=== PATIENT | male | born 1960 | race Caucasian/White ===

== ENCOUNTER → 2020-03-25 09:00 | Outpatient (BNVA) | payer OTHER, SELFPAY | PROVIDERS: Family Provider Nurse Practitioner Family; PCP Nurse Practitioner Family; Visit Provider Family Medicine | DX: N40.0 Benign prostatic hyperplasia without lower urinary tract symptoms (principal); R97.20 Elevated prostate specific antigen [PSA] | CPT/HCPCS: 84153 ==

== ENCOUNTER → 2020-09-11 09:00 | Outpatient (BNVA) | payer OTHER, SELFPAY | PROVIDERS: Family Provider Nurse Practitioner Family; PCP Nurse Practitioner Family; Visit Provider Nurse Practitioner Family | DX: R97.20 Elevated prostate specific antigen [PSA] (principal) | CPT/HCPCS: 84153 ==

== ENCOUNTER → 2021-03-29 09:16 | Outpatient (BNVA) | payer OTHER, SELFPAY | PROVIDERS: Family Provider Nurse Practitioner Family; PCP Nurse Practitioner Family; Visit Provider Urology | DX: R97.20 Elevated prostate specific antigen [PSA] (principal) | CPT/HCPCS: 84153 ==

== ENCOUNTER → 2021-11-09 08:58 | Outpatient (BNVA) | payer OTHER, SELFPAY | PROVIDERS: Family Provider Nurse Practitioner Family; PCP Nurse Practitioner Family; Visit Provider Urology | DX: R97.20 Elevated prostate specific antigen [PSA] (principal) | CPT/HCPCS: 84153 ==

== ENCOUNTER → 2022-11-28 09:37 | Outpatient (BNVA) | payer OTHER, SELFPAY | PROVIDERS: Family Provider Nurse Practitioner Family; PCP Nurse Practitioner Family; Visit Provider Urology | DX: N40.0 Benign prostatic hyperplasia without lower urinary tract symptoms (principal) | CPT/HCPCS: 84153 ==

== ENCOUNTER → 2023-10-09 10:54 | Outpatient (BNVA) | payer OTHER, SELFPAY | PROVIDERS: Family Provider Nurse Practitioner Family; PCP Nurse Practitioner Family; Visit Provider Family Medicine | DX: M25.511 Pain in right shoulder (principal) | CPT/HCPCS: 73030 ==

== ENCOUNTER → 2023-11-29 13:13 | Outpatient (BNVA) | payer OTHER, SELFPAY | PROVIDERS: Family Provider Nurse Practitioner Family; PCP Nurse Practitioner Family; Referring Provider Family Medicine; Visit Provider Specialist | DX: M12.811 Other specific arthropathies, not elsewhere classified, right shoulder | CPT/HCPCS: 73030 ==

== ENCOUNTER 2023-12-26 10:41 | Outpatient (CLI) | payer OTHER, SELFPAY ==
--- NOTE | 2023-12-26 11:00 | MR_ITS ---
WS: [id number] MRI RIGHT SHOULDER HISTORY: right shoulder pain COMPARISON: Radiograph 11/29/2023 TECHNIQUE: Multiplanar sequences of the shoulder joint are submitted. Moderate to severe AC joint arthritis. Thickening of the capsule surrounding the AC joint. Small cyst s in the distal clavicle measure up to 4.5 mm. There is a small amount of fluid in the subacromial an d subdeltoid bursa. No significant subacromial impingement. Normal position of the biceps tendon. No os acromion. There is increased T2 signal involving the very anterior most aspect of the supraspinatus muscle and increased T2 signal within the coracohumeral ligament with displacement. Findings are related to impi ngement upon the supraspinatus muscle and tendon with adjacent acute reactive inflammatory response. There are a few small cystic lesions near the coracohumeral ligament. These may be within the anterio rmost supraspinatus tendon. There does not appear to be a tendon tear. The remaining rotator cuff is negative. Small subchondral cysts in the superior humeral head. Normal glenoid. IMPRESSION: 1. Moderate to severe AC joint arthritis with distal clavicular osteophytes encroaching upon the ant erior most supraspinatus myotendinous insertion and the rotator cuff interval. There is increased T2 signal consistent with inflammatory response to the rotator cuff interval and possible small cystic c hanges within the supraspinatus muscle at this level. 2. Increased T2 signal in the coracohumeral ligament through the rotator cuff interval. 3. No full-thickness tear of the rotator cuff or retraction. 4.
== END 2023-12-26 10:42 | disposition home or self-care (01) ==
LOC: RAD 10:42
PROVIDERS: Family Provider Nurse Practitioner Family; PCP Family Medicine; Visit Provider Specialist
DX: M25.511 Pain in right shoulder (principal); M25.711 Osteophyte, right shoulder; M13.811 Other specified arthritis, right shoulder
CPT/HCPCS: 73221

== ENCOUNTER → 2024-01-10 08:53 | Outpatient (BNVA) | payer OTHER, SELFPAY | PROVIDERS: Family Provider Nurse Practitioner Family; PCP Family Medicine; Visit Provider Family Medicine | DX: N40.1 Benign prostatic hyperplasia with lower urinary tract symptoms (principal) | CPT/HCPCS: 84153 ==

== ENCOUNTER 2024-06-17 13:20 | Outpatient (CLI) | payer OTHER, SELFPAY ==
[2024-06-17] MEDS: iohexol 350 mg/mL 500 mL Btl (per mL) PO (13:39)
[2024-06-17 14:07] LABS: Blood Urea Nitrogen 25 mg/dL (8-23); Glomerular Filtration Rate 61.1 mL/min (90-130)
[2024-06-17] MEDS: iohexol 350 mg/mL 500 mL Btl (per mL) IV (14:23)
--- NOTE | 2024-06-17 14:30 | CT_ITS ---
WS: [id number] CT ABDOMEN AND PELVIS WITH CONTRAST HISTORY: recurrent bilateral hernias TECHNIQUE: Imaging performed of the abdomen and pelvis with IV contrast. Single phase imaging of the abdomen. Coronal and sagittal reformats are submitted. All CT scans at [facility] use at [address] one of these dose optimization techniques: automated exposure control; mA and/or kV adjustment per patient size (includes targeted exams where dose is matched to clinical indication); or iterative re construction. IV CONTRAST: Omnipaque 350; 100 mL IV. Oral contrast: Yes DLP: 732.98 mGy.cm COMPARISON: None available. Lower thorax: Mild dependent changes at the lung bases. Heart is normal size. Small hiatal hernia. Liver/biliary system: Normal size with no intrahepatic dilatation. Gallbladder: Probable cholelithiasis. Pancreas: Normal size pancreas and pancreatic duct. No adjacent inflammation. Spleen: Normal size spleen. No mass or infarct. Adrenal glands: RIGHT adrenal gland is not definitely identified. Normal LEFT adrenal gland. Right kidney: Abnormal appearance of the RIGHT kidney. Very large heterogeneous mass centered in the RIGHT retroperitoneum inseparable from the RIGHT kidney and renal pelvis. This mass extends over a le ngth of 16.9 cm x 14.8 x 12.0 cm. The RIGHT kidney is being displaced anteriorly but this mass is als o invading portion of the kidney. Mass extends into the gallbladder fossa and displacing the gallblad nelda anteriorly. Pancreatic head is being displaced medially. IVC is being displaced centrally . Adren al gland not identified as a separate structure. There is increased vascularity. The central portion of this mass is of mixed attenuation. IVC is being displaced anteriorly and enters along the anterior portion of the mass. Left kidney: Normal. Aorta: Normal. Lymphadenopathy: There are few tiny smooth mesenteric and retroperitoneal lymph nodes. Mild stranding around the mass centered in the RIGHT retroperitoneum associated with the kidney. Free fluid: Small amount of fluid along the mass in the RIGHT abdomen. GI tract: No obstruction. Abdominal wall: Unremarkable abdominal wall. No hernia. Pelvis: No free fluid or adenopathy within the pelvis. RIGHT inguinal canal is patent containing fat. Normal LEFT inguinal canal. Bladder is well distended. No filling defects. Prostate is enlarged encr oaching into the bladder. Bones: Scattered foci of increased density within the bones most consistent with small bone islands. CT/CT abdomen pelvis w con* [id number] IMPRESSION: 1. Very large RIGHT retroperitoneal mass is inseparable and invading the RIGHT kidney. Mass measures 16.9 x 14.8 x 12.0 cm. This is probably associated with the RIGHT kidney but there is also distortion of several adjacent soft tissue s tructures. The RIGHT kidney is being displaced anteriorly with adjacent perinep hric stranding. Small amount of adjacent fluid. 2. Retroperitoneal mass is distorting and displacing adjacent soft tissue stru ctures. The RIGHT adrenal gland is not definitely visualized as a separate stru cture. The RIGHT renal vein is being displaced anteriorly and enters the anteri or RIGHT renal mass and kidney. Renal cell neoplasm versus uroepithelial lesion . Due to the large size differential includes lymphoma and sarcoma. Recommend f ollow-up with urology. 3. Patent fat-containing RIGHT inguinal hernia. 4. Prostate enlargement. 5. Probable cholelithiasis.
== END 2024-06-17 13:21 | disposition home or self-care (01) ==
LOC: RAD 13:22
PROVIDERS: Family Provider Nurse Practitioner Family; PCP Family Medicine; Visit Provider Surgery
DX: K40.91 Unilateral inguinal hernia, without obstruction or gangrene, recurrent (principal); K44.9 Diaphragmatic hernia without obstruction or gangrene; D30.01 Benign neoplasm of right kidney; N15.1 Renal and perinephric abscess; N40.0 Benign prostatic hyperplasia without lower urinary tract symptoms
CPT/HCPCS: 74177; 82565; 84520; Q9967

== ENCOUNTER → 2024-06-28 09:05 | Outpatient (BNVA) | payer OTHER, SELFPAY | PROVIDERS: Family Provider Nurse Practitioner Family; PCP Family Medicine; Visit Provider Surgery | DX: N28.89 Other specified disorders of kidney and ureter (principal) | CPT/HCPCS: 36415; 80048; 80076; 81003; 81015; 85025 ==

== ENCOUNTER 2024-07-17 14:58 | Outpatient (CLI) | payer OTHER, SELFPAY ==
--- NOTE | 2024-07-17 15:10 | CTR_ITS ---
PROCEDURE INFORMATION: Exam: CT Chest Without and With Contrast; Diagnostic Exam date and time: 07/17/2024 3:35 PM Age: 63 years old Clinical indication: Condition or disease; Patient HX: Right renal mass PT is scheduled for 08/02/24 to have right renal mass removed. TECHNIQUE: Imaging protocol: Diagnostic computed tomography of the chest without and with contrast. Radiation optimization: All CT scans at this facility use at least one of these dose optimization techniques: automated exposure control; mA and/or kV adjustment per patient size (includes targeted exams where dose is matched to clinical indication); or iterative reconstruction. Contrast material: OMNI 350; Contrast volume: 100 ml; Contrast route: INTRAVENOUS (IV); COMPARISON: CT abdomen pelvis w con* [id number] 06/17/2024 2:15 PM RADIATION DOSE METRICS: Total DLP (mGy-cm): 1039.5 FINDINGS: Lungs: There are scattered calcified granulomas. Two adjacent noncalcified nodules involving the right middle lobe (image 40 of series 5) both measure 3 mm in size. Noncalcified nodule involving the right lower lobe measures 4-5 mm in size (series 5, image 40). 2-3 mm noncalcified pulmonary nodule right lung base (series 5 image 64). 2 mm noncalcified pulmonary nodule left upper lobe (series 5, image 18). There is linear scarring or atelectasis involving the lower lobes bilaterally. No consolidated infiltrates are appreciated. Pleural spaces: Unremarkable. No pneumothorax. No pleural effusion. Heart: Unremarkable. No cardiomegaly. No pericardial effusion. Mediastinal space: There is a triangular lesion within the anterior superior mediastinum which measures 1.7 x 2.2 cm in size. The lesion measures 6.6 Hounsfield units on the precontrast images and 12 Hounsfield units on the postcontrast images. No appreciable internal enhancement is identified. The lesion measures fluid density. Potentially this may represent a benign mediastinal cyst. Lymph nodes: Unremarkable. No enlarged lymph nodes. Vasculature: The aorta is normal in caliber without aneurysm or dissection. There is minimal calcified plaque involving the aorta. No calcified plaque is noted involving the coronary vessels. Gallbladder and biliary ducts: There are gallstones within the gallbladder. Kidneys: There is a partially imaged mass within the right upper quadrant which has been previously shown to arise from the right kidney. Bones/joints: Unremarkable. No acute fracture. Soft tissues: Unremarkable. CT/CT chest wo/w con [id number] IMPRESSION: 1. Small bilateral pulmonary nodules which may or may not be metastatic in origin. 2. Linear atelectasis or scarring at the lung bases. 3. Fluid density lesion within the anterior superior mediastinum possibly representing a mediastinal cyst. Follow-up may be of benefit to document stability over time. 4. Cholelithiasis. 5. Partially imaged mass within the right upper quadrant presumably arising from the right kidney.
[2024-07-17] MEDS: iohexol 350 mg/mL 500 mL Btl (per mL) IV (15:45)
== END 2024-07-17 14:59 | disposition home or self-care (01) ==
LOC: RAD 14:59
PROVIDERS: Family Provider Nurse Practitioner Family; PCP Family Medicine; Visit Provider Surgery Trauma Surgery
DX: N28.89 Other specified disorders of kidney and ureter (principal); R91.8 Other nonspecific abnormal finding of lung field; J98.11 Atelectasis; D15.2 Benign neoplasm of mediastinum; K80.20 Calculus of gallbladder without cholecystitis without obstruction; D30.01 Benign neoplasm of right kidney
CPT/HCPCS: 71270; Q9967

== ENCOUNTER → 2024-09-03 09:06 | Outpatient (BNVA) | payer OTHER, SELFPAY | PROVIDERS: Family Provider Nurse Practitioner Family; PCP Family Medicine; Visit Provider Family Medicine | DX: R91.1 Solitary pulmonary nodule (principal) | CPT/HCPCS: 80053 ==

== ENCOUNTER 2024-09-09 05:35 | Day surgery (SDC) | payer OTHER, SELFPAY ==
--- OUTSIDE RECORDS SUMMARY | 2024-08-28 15:55 | XMS_ITS ---
Author Name Unknown Organization [facility] Address [address] [place] [address] Care Team Providers Care [place] Erector Helper Name Role Phone Darius Sánchez DO Primary Care Provider Fabian Page [phone] REASON FOR VISIT 1 yr w/ psa/ua/pvr Encounters Encounter Location Date Provider Diagnosis [facility] [address] [place] [id number] 01/18/2024 Fabian Floyd Plan Of Treatment No Information Progress Notes * Lon JAMESinDOB: (63 yo M)Acc No.[id number]:01/18/2024 Progress Notes Patient:?Jean JAMES Provider:?Fabian Floyd MD :1960???Age:63 Y???Sex:Male Duane e:01/18/2024 Address:[address] [place], [place] [id number] Pcp:Darius Sánchez DO Subjective: * Chief Complaints: * ???1. 1 yr w/ psa/ua/pvr. * Medical History:? Objective: * Vitals:? Assessment: Plan: * Treatment: * Billing Information: * Visit Code:? * Procedure Codes:? * Electronic signature of Williams Floyd MD on 08/28/2024 at 03:55 PM CDT Sign off status: Pending * Provider:?Fabian Floyd MD Date:?2023 Generated for Printi ng/Faxing/eTransmitting on:?08/28/2024 03:55 PM CDT
--- OUTSIDE RECORDS SUMMARY | 2024-08-28 15:55 | XMS_ITS | Patient Health Record ---
Author Name Unknown Organization [facility] Address [address] [place] [address] Care Team Providers Care Tumbler Machine Operator Helper Name Role Phone Darius Sánchez DO Primary Care Provider Unavail jon FloydFabian [phone] Allergies Allergen (clinical drug ingredient) Drug/Non Drug Allergy documented on EMR Reaction Allergy Type Onset Date Status No Known Drug Allergy Unknown Drug Allergy Active Reason For Referral No Information Medications Medication SIG (Take, Route, Fr equency, Duration) Notes Start Date End Date Status Tadalafil 5 MG TAKE ONE TABLET BY M OUTH ONCE DAILY for 90 Active Tamsulosin HCl 0.4 MG TAKE ONE CAPSULE B Y MOUTH ONCE DAILY for 90 Active Finasteride 5 MG TAKE ONE TABLET BY M OUTH ONCE DAILY for 90 days for 90 Active Immunizations Vaccine Route Administration Date Status Comme nts Influenza (whole), CPT 21672 Inactive Unknown 08/26/2019 Administered Social History Tobacco Use: Social History Observation Description Date Details (start date - stop date) Former Smoker NA - NA xTobacco Use/Smoking Question Answer Notes Are you a former smoker How long has it been since you last smoked? > 10 years PHQ-9 Question Answer Notes Little interest or pleasure in doing things Not at all Feeling down, depressed, or hopeless Not at all Trouble falling or staying asleep, or sleeping t oo much Not at all Feeling tired or having little energy Not at all Poor appetite or overeating Not at all Feeling bad about yourself, or that you are a failure, or have let yourself or your family down Not at all Trouble concentrating on thi ngs, such as reading the newspaper or watching television Not at all Moving or speaking so slowly that other people could have noticed. Or the opposite ? being so fidgety or restless that you have been moving around a lot more than usual Not at all Thoughts that you would be b charisse off , or of hurting yourself in some way Not at all Total Score 0 Problems Problem Type SNOMED Code ICD Code Onset Dates Problem Status W/U Status Risk Notes Problem Lower urinary tract symptoms due to benign prostatic hypertrophy (39491854793743) Benign prostatic hyperplasia with lower urinary tract symptoms (N40.1) Active confirmed Problem Elevated PSA (538394377) Elevated PSA (R97.20) Active confirmed Plan Of Treatment Pending Test Test Name Order Date ELECTRO-UROFLOWMETRY FIRST 06/16/2021 Future Test Test Name Order Date PSA Diagnostic--[id number] 11/20/2023 Insurance Providers Payer Name Payer Address Payer Phone Subscriber Number Group Number Insured Name Patient Relationship to Insured Coverage Start Date Coverage End Date [facility] [address] [address] [place] [address] [phone] [id number] Jean Sandoval Self - patient is the insured Medical (General) History Medical History History ICD Code Obstructive sleep apnea syndrome BPH Elevated PSA Surgical History Surgery Date(Month/Year) colonoscopy 2021 double hernia repair 2018 Hospitalization History Reason Date(Month/Year) see surgical list
[2024-09-09] VITALS (10 sets, daily range): BP systolic 111–132; BP diastolic 65–80; PULSE 62–90; RESP 7–22; TEMP 36.1–36.4; O2SAT 95–100
[2024-09-09] MEDS: sodium chloride 0.9% 1,000 ML 30 ML IV (06:04)
--- NOTE | 2024-09-09 06:13 | W.PM.OPSUD ---
Surgery/Procedure H&P Update DATE OF PROCEDURE: September 09, 2024 DATE H&P PERFORMED: 08/28/24 H&P UPDATE INFORMATION: I have reviewed H&P completed within last 30 days, I have examined patient prior to procedure, No changes to prior documentation and H&P is in [facility] [place] date indicated PREOP DIAGNOSIS: right inguinal hernia PLANNED PROCEDURE: Operation Date: 09/09/24 07:00 Proposed Procedures p Inguinal Hernia Repair Open Inguinal Hernia Repair w/ Mesh [id number], K40.91(Right) - Doron Aviles MD
--- NOTE | 2024-09-09 06:46 | ANES.PREANE2 ---
Pre-Anesthetic Assessment Height/Weight: Height 1.96 m Weight 105.233 kg Temp Pulse Resp BP Pulse Ox O2 Del Method 97.4 F L 90 16 121/80 96 Room Air 09/09/24 06:01 09/09/24 06:01 09/09/24 06:01 09/09/24 06:01 09/09/24 06:01 09/09/24 06:01 Preop Diagnosis: right inguinal hernia Operation Date: 09/09/24 07:00 Proposed Procedures p Inguinal Hernia Repair Open Inguinal Hernia Repair w/ Mesh [id number], K40.91(Right) - Doron Aviles MD Familial anesthetic complications: None Was Beta Janna taken within 24 hours: N/A Was Clonidine taken within 24 hours: N/A Last intake: Intake Last Liquid Date 09/08/24 Last Liquid Time 18:00 Last Solid Date 09/08/24 Last Solid Time 18:00 Social No alcohol and No tobacco former smoker, quit over 10 years ago Airway Mallampati: Class III Dentition: other (missing teeth) Pulmonary Sleep Apnea Chronic Renal Insufficiency R nephrectomy (non-malignant kidney mass) Anesthetic Plan ASA status: 3 Anesthesia: General Risk of > 500 ml blood loss (7ml/kg in children): No Medications/Allergies Home Medications Medication Instructions Recorded Confirmed Last Taken Type finasteride 5 mg tablet 5 mg PO DAILY 06/30/22 09/09/24 09/08/24 History tadalafil 2.5 mg tablet 2.5 mg PO DAILY 06/30/22 09/09/24 09/05/24 History tamsulosin 0.4 mg capsule 0.4 mg PO DAILY 06/30/22 09/09/24 09/08/24 History ibuprofen 200 mg capsule 200 mg PO Q6H PRN Pain 07/04/24 09/09/24 Unknown History ferrous sulfate 325 mg (65 mg 325 mg PO DAILY 08/30/24 09/09/24 09/08/24 History iron) tablet (FeroSul) Allergies Allergy/AdvReac Type Severity Reaction Status Date / Time No Known Allergies Allergy Verified 08/30/24 10:00 Current Medications Generic Name Dose Route Start Last Admin Trade Name Freq PRN Reason Stop Dose Admin Sodium Chloride 1,000 mls @ 30 mls/hr 09/09/24 06:00 09/09/24 06:04 Sodium Chloride 0.9% IV 09/10/24 05:59 30 mls/hr .Q24H KARLA Administration PFSH Anesthesia Medical History (Updated 09/04/24 @ 08:33 by Anabela Worley, RN) BPH (benign prostatic hyperplasia) Surgical History (Updated 09/05/24 @ 15:22 by Anastasiia Burks, MANUEL) History of colonoscopy (11/08/22) History of hernia repair (2011) Bilateral inguinal hernia repair with mesh Family History Father Colon cancer Mother Stroke Brother Leukemia Social History Smoking and tobacco/nicotine status: former use of tobacco/nicotine Quit status (tobacco/nicotine): has quit using Year quit tobacco: 2013 Former quit date comment: He smoked 1 PPD for 30 years Alcohol intake: current Alcohol intake frequency: holidays/special occasions only Data Anesthesia Cardiac Studies: No Data to Display
[2024-09-09] MEDS: ceFAZolin 2,000 mg SDV 2000 MG IVP (06:59)
[2024-09-09] MEDS: lidocaine-epi 1% 20 mL INJ INJECTION (07:26)
[2024-09-09] MEDS: BUPivacaine 0.25% INJ 10 mL INJECTION (07:26)
--- NOTE | 2024-09-09 09:23 | P.OP_ITS ---
Operative Report Date of procedure: September 09, 2024 Pre-op diagnosis: Recurrent right inguinal hernia Post-op diagnosis: Recurrent right inguinal hernia Post-op findings: There was a right inguinal hernia with a indirect component and also some preperitoneal fat that had herniated in a direct fashion Procedure done: Open Inguinal hernia repair with mesh, recurrent. Implants: Bard polypropylene mesh, no plug Surgeon: Doron Aviles MD Dressage Instructor: [facility] OR Staff Estimated blood loss: 5 hours Brief History: This is a 3-year-old male with a recurrent right inguinal hernia who presented for repair. After discussion of all risk and benefits as documented my preop note we decided to proceed.. Procedure: Patient was brought into the OR, he was placed in a supine position. General anesthesia was given. The right groin was prepped and draped in the usual sterile fashion. Timeout was conducted. I then proceeded to make 8 centimeter incision over the right groin in an area overlying the pubic tubercle vertical and directed towards the area overlying the internal ring. The incision was deepened into the subcutaneous tissue, Yoni's fascia was opened, the incision was continued to be deepened until the aponeurosis of the external oblique was identified. The aponeurosis of the external oblique was then opened with a scalpel in the direction of the fibers, a Metzenbaum was used to dissect under the aponeurosis and to completely open it from the external ring to the area overlying the internal ring. Ilioinguinal nerve was identified at this point and was preserved. The cord and structures were bluntly dissected from the inguinal canal, they were then encircled with a [place] drain. At this point I was able to identify the area of weakness in the posterior wall of the canal with some herniated preperitoneal fat, there was some scar tissue at this level from the previous hernia repair, the preperitoneal fat herniated appeared to be on top of the mesh previously placed. I placed my attention to the cord, I opened the cremaster muscle in a longitudinal fashion and then bluntly dissected the cord structures away from a small hernia sac that was noted. The hernia sac was completely dissected to the base at the level of the internal ring. I then proceeded to twisted and ligated at the base with #2-0 Vicryl. The hernia sac was then reduced to the preperitoneal space. No additional herniation was noted, no evidence of lipoma of the cord was noted. Since the floor of the inguinal canal are was weakened with some herniated fat I proceeded to plicated using #0 Prolene, I did this by approximating the transversalis muscle on top of the fat, this allows for a good landing zone for our mesh. I then proceeded to place the mesh into the floor of the canal, the apex of the mass was located at the level of the pubic tubercle and the tails of the mesh were used to encircle the cord structures. The mesh was fixed with #0 Prolene to the pubic tubercle medially, to the conjoined tendon superiorly, to the shelving edge of the inguinal ligament inferiorly and the tails were joined together on the lateral direction. Careful consideration was taken of not injuring the genitofemoral nerve, daily epigastric nerve was visualized superior to the landing some of the mesh and was left undisturbed. Once the mesh was in place, the wound was irrigated, I verified appropriate position of the mesh and hemostasis was verified. The aponeurosis of the external oblique was then closed using #2-0 Vicryl. I irrigated the wound again and verified hemostasis, I then proceeded with a layer closure of the wound using #2-0 Vicryl for the Yoni's fascia, #3- 0 Vicryl for the subcutaneous tissue and #4-0 Monocryl for the skin. Dermabond was applied. At the end of the procedure all counts were correct, the patient tolerated well the procedure and was transferred to the PACU in stable condition. Before the closure of the wound 20 cc of local anesthetic was infiltrated in the wound.
--- NOTE | 2024-09-09 10:30 | ANE.PACU2 ---
Inpatient post-anesthesia follow up: Airway intact: Yes Vital signs: Temperature 97.5 F Pulse Rate 62 Respiratory Rate 16 Blood Pressure 124/67 Pulse Oximetry 99 Oxygen Delivery Me thod Room Air Oxygen Flow Rate 8 Fraction of Inspir ed Oxygen Hydration adequate: Yes Nausea and vomiting: No Pain level: 1 Mental status: Baseline
== END 2024-09-09 10:30 | disposition home or self-care (01) ==
PROVIDERS: PCP Family Medicine; Visit Provider Surgery
PROC: (CPT 49520; principal; 2024-09-09 07:00)
DX: K40.91 Unilateral inguinal hernia, without obstruction or gangrene, recurrent (principal); Z87.891 Personal history of nicotine dependence; Z90.5 Acquired absence of kidney; N40.0 Benign prostatic hyperplasia without lower urinary tract symptoms
CPT/HCPCS: 49520; C1781; J0690; J1100; J1170; J2371; J2405; J2704; J2710; J3010; J3490; J7030

== ENCOUNTER 2024-09-26 15:35 | Oncology outpatient (recurring) (ONCR) | payer OTHER, SELFPAY ==
--- NOTE | 2024-09-26 16:00 | CTR_ITS ---
PROCEDURE INFORMATION: Exam: CT Chest With Contrast; Diagnostic Exam date and time: 09/26/2024 3:48 PM Age: 63 years old Clinical indication: Condition or disease; Lung condition and disease; Pulmonary nodule, solitary; Prior surgery; Surgery date: 6+ months; Surgery type: Right kidney; Additional info: R91.1 - solitary pulmonary nodule TECHNIQUE: Imaging protocol: Diagnostic computed tomography of the chest with contrast. Radiation optimization: All CT scans at this facility use at least one of these dose optimization techniques: automated exposure control; mA and/or kV adjustment per patient size (includes targeted exams where dose is matched to clinical indication); or iterative reconstruction. Contrast material: OMNI 350; Contrast volume: 100 ml; Contrast route: INTRAVENOUS (IV); COMPARISON: CT chest wo/w con [id number] 07/17/2024 3:35 PM RADIATION DOSE METRICS: Total DLP (mGy-cm): 476.36 FINDINGS: Lungs: There are scattered calcified granulomas. Two tiny noncalcified pulmonary nodules seen within the right middle lobe series 4, image 34 are unchanged. Right lower lobe nodule seen on prior exam appears to be calcified on today's exam. 2-3 mm noncalcified pulmonary nodule right lung base series 4, image 62 is unchanged. 2 mm noncalcified pulmonary nodule left upper lobe series 4, image 16 is unchanged. No new noncalcified nodules are noted. Linear scarring is again noted involving the lower lobes. No consolidated infiltrates are noted. Pleural spaces: Unremarkable. No pneumothorax. No pleural effusion. Heart: Unremarkable. No cardiomegaly. No pericardial effusion. Mediastinal space: Fluid density triangular lesion within the anterior superior mediastinum is unchanged when compared to prior exam possibly representing a benign mediastinal cyst. No enlarged mediastinal lymph nodes are appreciated. Lymph nodes: See Mediastinal space finding. Vasculature: The thoracic aorta is normal in caliber without aneurysm or dissection. There is calcified plaque involving the aorta without calcified plaque involving the coronary vessels. Bones/joints: Unremarkable. No acute fracture. Soft tissues: There are gallstones within the gallbladder. No pericholecystic inflammatory change is noted. CT/CT chest w con* [id number] IMPRESSION: 1. Bilateral nodules unchanged. 2. Scarring at the lung bases. 3. Triangular fluid density lesion within the anterior superior mediastinum is unchanged and may represent a mediastinal cyst. 4. Cholelithiasis.
[2024-09-26] MEDS: iohexol 350 mg/mL 500 mL Btl (per mL) IV (16:05)
== END 2024-10-19 23:59 | disposition home or self-care (01) ==
PROVIDERS: PCP Family Medicine; Visit Provider Internal Medicine Medical Oncology
DX: R91.8 Other nonspecific abnormal finding of lung field (principal); K80.20 Calculus of gallbladder without cholecystitis without obstruction; I51.9 Heart disease, unspecified
CPT/HCPCS: 71260

== ENCOUNTER → 2024-11-07 11:00 | Outpatient (BNVA) | payer OTHER, SELFPAY | PROVIDERS: PCP Family Medicine; Visit Provider Family Medicine | DX: N17.9 Acute kidney failure, unspecified (principal); N18.2 Chronic kidney disease, stage 2 (mild) | CPT/HCPCS: 80048 ==

== ENCOUNTER → 2025-02-04 10:02 | Outpatient (BNVA) | payer OTHER, SELFPAY | PROVIDERS: PCP Family Medicine; Referring Provider Nurse Practitioner Family; Visit Provider Family Medicine | DX: R97.20 Elevated prostate specific antigen [PSA] (principal); N17.9 Acute kidney failure, unspecified; R94.4 Abnormal results of kidney function studies | CPT/HCPCS: 80048; 81000; 82043; 82310; 82728; 83550; 83970; 84100; 84550; 85018; G0103 ==

== ENCOUNTER → 2025-02-25 11:30 | Outpatient (BNVA) | payer OTHER, SELFPAY | PROVIDERS: PCP Family Medicine; Referring Provider Nurse Practitioner Family; Visit Provider Nurse Practitioner Family | DX: R97.20 Elevated prostate specific antigen [PSA] (principal) | CPT/HCPCS: 84153 ==

== ENCOUNTER → 2025-06-10 08:15 | Outpatient (BNVA) | payer OTHER, SELFPAY | PROVIDERS: PCP Family Medicine; Referring Provider Urology; Visit Provider Family Medicine | DX: R97.20 Elevated prostate specific antigen [PSA] (principal) | CPT/HCPCS: 84153 ==

== ENCOUNTER → 2025-10-06 08:30 | Outpatient (BNVA) | payer OTHER, SELFPAY | PROVIDERS: PCP Family Medicine; Visit Provider Family Medicine | DX: N18.31 Chronic kidney disease, stage 3a (principal); R97.20 Elevated prostate specific antigen [PSA] | CPT/HCPCS: 80048; 81000; 82040; 82310; 83036; 83970; 84100; 84153; 84156; 84550; 87086 ==